=== PATIENT | male | born 1970 | race African-American/Black ===

== ENCOUNTER 2021-09-27 23:29 | Emergency (ER) | payer SELFPAY ==
[~2021-09-27] VITALS: Ht 175.3 cm; Wt 61.5 kg
--- NOTE | 2021-09-28 | PHYS DOC ---
General Adult EDM: Chief Complaint: TRAUMA ACTIVATION HPI: HPI: Patient is a 51 year old [f__sex] who presents with [] Patient fell down a flight of stairs. He denies head injury. Complaint of right hand pain--- patient had nail puncture his right hand - thenar eminence between his right thumb and right index finger. Patient also complains of left shoulder pain and left sided rib pain. Patient states chronic history of left shoulder pain he thinks he dislocated his left shoulder. Patient is alert and oriented x4 he denies any head or neck pain. I see no deformities of patient's extremities. Patient arrived by private vehicle. Review of Systems: Review of Systems: Constitutional: Denies fever or chills. [] Eyes: Denies change in visual acuity. [] HENT: Denies nasal congestion or sore throat. [] Respiratory: Denies cough or shortness of breath. [] Cardiovascular: Denies chest pain or edema. [] GI: Denies abdominal pain, nausea, vomiting, bloody stools or diarrhea. [] : Denies dysuria. [] Musculoskeletal: Denies back pain positive shoulder pain , positive hand pain. [] Integument: Denies rash. [] Neurologic: Denies headache, focal weakness or sensory changes. [] Endocrine: Denies polyuria or polydipsia. [] Lymphatic: Denies swollen glands. [] Psychiatric: Denies depression or anxiety. [] Heart Score: C/O Chest Pain: N/A Risk Factors: Risk Factors: DM, Current or recent (<one month) smoker, HTN, HLP, family history of CAD, obesity. Risk Scores: Score 0 - 3: 2.5% MACE over next 6 weeks - Discharge Home Score 4 - 6: 20.3% MACE over next 6 weeks - Admit for Clinical Observation Score 7 - 10: 72.7% MACE over next 6 weeks - Early Invasive Strategies Physical Exam: PE: Constitutional: Well developed, well nourished, no acute distress, non-toxic appearance. [] HENT: Normocephalic, atraumatic, bilateral external ears normal, oropharynx moist, no oral exudates, nose normal. [] Eyes: PERRLA, EOMI, conjunctiva normal, no discharge. [] Neck: Normal range of motion, no tenderness, supple, no stridor. [] Cardiovascular:Heart rate regular rhythm, no murmur [] Lungs & Thorax: Bilateral breath sounds clear to auscultation [] Abdomen: Bowel sounds normal, soft, no tenderness, no masses, no pulsatile masses. [] Skin: Warm, dry, no erythema, no rash. [Puncture wound laceration 1 cm thenar eminence right hand] Back: No tenderness, no CVA tenderness. [] Extremities: No tenderness, no cyanosis, no clubbing, ROM intact, no edema. [] Neurologic: Alert and oriented X 3, normal motor function, normal sensory function, no focal deficits noted. [] Psychologic: Affect normal, judgement normal, mood normal. [] EKG: EKG: [] Radiology/Procedures: Radiology/Procedures: [] Impression: X-rays no acute fractures or dislocation Course & Med Decision Making: Course & Med Decision Making Pertinent Labs and Imaging studies reviewed. (See chart for details) [] Patient's tetanus was updated. He has received morphine and Zofran for pain and nausea. Procedure laceration right hand was repaired. Lidocaine 1% approximately 3 cc used for local anesthesia. Once successful anesthesia was achieved wound was cleaned and explored no foreign bodies identified. 3 sutures simple interrupted five-point 0 nylon placed. Patient with no complications. Trinh Disclaimer: Trinh Disclaimer: This electronic medical record was generated, in whole or in part, using a voice recognition dictation system. Departure Departure Impression: Primary Impression: Fall (on) (from) other stairs and steps, initial encounter Additional Impressions: Shoulder pain, left Rib pain on left side Puncture wound Disposition: HOME / SELF CARE / HOMELESS Condition: STABLE Patient Instructions: Fall Prevention and Home Safety, Puncture Wound, Rib Contusion, Shoulder Pain Scripts Amoxicillin/Potassium Clav (AUGMENTIN 500-125 TABLET) 1 Each Tablet 1 TAB PO BID for 10 Days, #20 TAB 0 Refills Prov: BRAXTON COTTO DO 09/28/21 Tramadol Hcl (ULTRAM) 50 Mg Tablet 1 TAB PO PRN Q6HRS PRN for pain MDD 4 Tablet(s) for 7 Days, #28 TAB 0 Refills Prov: BRAXTON COTTO DO 09/28/21 BRAXTON COTTO DO Sep 28, 2021 00:00
[2021-09-28] MEDS ORDERED: ONDANSETRON PF 4 MG/2 ML VIAL. IVP ONE (00:30)
[2021-09-28] MEDS ORDERED: MORPHINE SULFATE 2 MG/ML INJ. IVP ONE (00:30)
--- NOTE | 2021-09-28 01:02 | RAD ---
EXAMINATION: XR SHOULDER_LEFT 2+ VIEWS CLINICAL HISTORY: Shoulder pain following fall. TECHNIQUE: XR SHOULDER_LEFT 2+ VIEWS COMPARISON: None FINDINGS/ IMPRESSION: Mild glenohumeral joint space narrowing. Mild to moderate hypertrophic acromioclavicular degenerative changes. No acute fracture. 1.4 cm sclerotic density in the humeral head/lesser tuberosity, possibly a bone island. Electronically signed by: Geronimo Chavez DO (09/28/2021 1:00 AM) [facility]
--- NOTE | 2021-09-28 01:04 | RAD ---
EXAMINATION: XR RIBS MIN 3 VIEWS LT W/PA CHEST CLINICAL HISTORY: Chest and left rib pain following fall. EXAM DATE/TIME: 09/27/2021 12:22 AM COMPARISON: None FINDINGS: Lines, Tubes, and Devices: None. Cardiomediastinal Silhouette: Normal heart size. Aortic atherosclerotic calcification. Lungs and Pleura: No evidence of focal airspace consolidation, pleural effusion, or pneumothorax. Bones and Soft Tissues: No acute osseous abnormality. IMPRESSION: No evidence of acute left rib fracture or acute cardiopulmonary abnormality. Electronically signed by: Geronimo Chavez DO (09/28/2021 1:02 AM) [facility]
--- NOTE | 2021-09-28 01:05 | RAD ---
EXAMINATION: XR HAND_RIGHT 3 VIEWS CLINICAL HISTORY: Hand pain following fall. TECHNIQUE: XR HAND_RIGHT 3 VIEWS COMPARISON: None FINDINGS/ IMPRESSION: Joint spaces and alignment maintained. No acute fracture. No focal soft tissue swelling. Electronically signed by: Geronimo Chavez DO (09/28/2021 1:03 AM) [facility]
[2021-09-28] MEDS ORDERED: AMOX1TAB58 PO (01:20)
[2021-09-28] MEDS ORDERED: TRAM-48 PO (01:20)
[2021-09-28] MEDS ORDERED: LIDOCAINE 1% PF 5 ML VIAL. INJ ONE (01:30)
[2021-09-28 01:55] VITALS: BP 135/103
[2021-09-28] MEDS ORDERED: DIPHTH,PERTUSS(ACELL),TET TOX 0.5 ML DISP.SYRIN. VAX IM ONE ×2 (02:00→02:03)
== END 2021-09-28 02:25 | disposition home or self-care (01) ==
LOC: ER 23:29
DX: S61.411A Laceration without foreign body of right hand, initial encounter (principal); M25.512 Pain in left shoulder; R07.81 Pleurodynia; W10.8XXA Fall (on) (from) other stairs and steps, initial encounter; Y93.89 Activity, other specified; Y92.89 Other specified places as the place of occurrence of the external cause; Y99.8 Other external cause status
CPT/HCPCS: 12001; 71101; 73030; 73130; 90471; 90715; 96374; 96375; 99285; J2270; J2405; J3490